=== PATIENT | female | born 1990 | race Caucasian/White ===

== ENCOUNTER 2018-07-17 07:14 | Inpatient (IN) | payer OTHER | END 2018-07-20 12:10 | disposition home or self-care (01) | LOC: ER 07:14 → CENTRAL 07-18 09:31 → TELE 14:40 → TELE-CENTR 14:55 | PROC: 0DTJ4ZZ Resection of Appendix, Percutaneous Endoscopic Approach (ICD-10-PCS; principal; 2018-07-18 10:22) | DX: K35.80 Unspecified acute appendicitis (principal); N39.0 Urinary tract infection, site not specified; E66.9 Obesity, unspecified; Z68.31 Body mass index [BMI] 31.0-31.9, adult ==

== ENCOUNTER 2018-07-25 17:06 | Emergency (ER) | payer OTHER ==
[~2018-07-25] VITALS: Ht 165.1 cm; Wt 82.1 kg
[~2018-07-25 17:06] MED LIST: OME20T PO; ONDA-101 PO
[2018-07-25 17:11] VITALS: BP 130/91
[2018-07-25] MEDS ORDERED: methylPREDNISolone SOD SUCC 125 MG/2 ML VL IM ONE (18:45)
[2018-07-25] MEDS ORDERED: diphenhdrAMINE HCL 50 MG/1 ML VL IM ONE (18:45)
[2018-07-25] MEDS ORDERED: EPINEPHrine HCL 1 MG/1 ML AMP SC ONE (18:45)
[2018-07-25 20:00] LABS: Basophils # (auto) 0 uL; Eosinophils # (auto) 0.2 uL; Hemoglobin 11.2 g/dL (12.2-16.2); Lymphocytes # (auto) 1.7 uL; Mean Corpuscular Hemoglobin 22.7 pg (28.0-32.0)
[2018-07-25 20:03] LABS: Basophils % (auto) 0.4 % (0.0-2.0); Eosinophils % (auto) 3.2 % (0.0-7.0); Hematocrit 34.9 % (36.0-46.0); Lymphocytes % (auto) 22.3 % (10.0-50.0); Mean Corpuscular Volume 70.8 fL (80.0-100.0); Monocytes # (auto) 0.7 uL; Monocytes % (auto) 8.7 % (0.0-12.0); Neutrophils % (auto) 65.4 % (37.0-80.0); Platelet Count (auto) 321 10^3/uL (140-450); Red Blood Cells 4.94 10^6/uL (4.0-5.20); Red Cell Distribution Width 17.3 % (11.8-14.3); White Blood Cell 7.6 10^3/uL (4.4-10.8)
[2018-07-25 20:10] LABS: Albumin 3.5 g/dL (3.4-5.0); BUN/Creatinine Ratio 16.7; Calcium 8.6 mg/dL (8.5-10.1); Potassium 3.5 mmol/L (3.5-5.1)
[2018-07-25 20:12] LABS: Bilirubin, Total 0.1 mg/dL (0.2-1.0); Total Protein 7.6 g/dL (6.4-8.2)
== END 2018-07-25 21:26 | disposition home or self-care (01) ==
LOC: ER 17:06
DX: L23.9 Allergic contact dermatitis, unspecified cause (principal); R55 Syncope and collapse; R42 Dizziness and giddiness; F12.10 Cannabis abuse, uncomplicated; Z87.891 Personal history of nicotine dependence
CPT/HCPCS: 36415; 70450; 80053; 83605; 85025; 96372; 99284; J0171; J1200; J2930

== ENCOUNTER 2019-12-31 07:55 | Emergency (ER) | payer OTHER ==
[~2019-12-31] VITALS: Ht 165.1 cm; Wt 86.2 kg
[2019-12-31 08:02] VITALS: BP 146/92
== END 2019-12-31 08:58 | disposition home or self-care (01) ==
LOC: ER 07:55
DX: R07.81 Pleurodynia (principal); F12.10 Cannabis abuse, uncomplicated; Z91.041 Radiographic dye allergy status; Z87.891 Personal history of nicotine dependence
CPT/HCPCS: 71101

== ENCOUNTER 2020-12-23 10:51 | Emergency (ER) | payer OTHER ==
[~2020-12-23] VITALS: Ht 165.1 cm; Wt 89.8 kg
[2020-12-23 10:58] VITALS: BP 143/97
[2020-12-23] MEDS ORDERED: SUMAtriptan SUCCINATE 6 MG/0.5 ML VL SC ONE (13:15)
[2020-12-23] MEDS ORDERED: ONDANSETRON ODT 4 MG TAB PO ONE (13:15)
== END 2020-12-23 14:09 | disposition home or self-care (01) ==
LOC: ER 10:51
DX: G43.909 Migraine, unspecified, not intractable, without status migrainosus (principal); F12.10 Cannabis abuse, uncomplicated; Z87.891 Personal history of nicotine dependence
CPT/HCPCS: 70450; 96372; 99284; J3030; Q0162

== ENCOUNTER 2024-08-30 12:22 | Inpatient (IN) | payer MEDICAID, OTHER ==
[~2024-08-30] VITALS: Ht 165.1 cm; Wt 91.0 kg
[2024-08-30 13:36] LABS: Urine Bacteria None Seen /hpf (None Seen)
[2024-08-30 13:50] LABS: Urine Blood 2+ /uL (Negative); Urine Budding Yeast OCCASIONAL /hpf (None Seen); Urine Clarity Turbid (Clear); Urine Color Yellow (Yellow); Urine Mucus FEW (None Seen); Urine Protein, UAD TRACE (Negative); Urine Specific Gravity 1.028 (1.001-1.035); Urine Squamous Epithelial Cell FEW /hpf (<5); Urine Urobilinogen Normal (Negative); Urine WBC 9 /HPF (0-5); Urine pH 5.5 (5.0-9.0)
--- NOTE | 2024-08-30 14:51 | ED.PDOC ---
GI ASSESSMENT HPI Comments 33 year old female presents to the ED with chief complaint of abdominal pain. Patient reports that she has been experiencing sharp LLQ abdominal pain since this morning at 10am with associated nausea and vomiting. Patient relays that she had a tubal ligation performed on 08/20/24 and her LMP was on 08/08/24. Patient states she just finished her prescription of Doxycycline for her recent surgery. Patient denies any diarrhea, melena, hematemesis, fever, chills, dysuria, or hematuria. Chief Complaint: Abdominal Pain Time Seen by MD: 14:51 Primary Care Provider: BILLY Reviewed Notes: Nurses Notes, Medications, Allergies Allergies: Coded Allergies: Iodine (Verified Allergy, Unknown, 12/31/19) Home Meds Reported Medications Famotidine (Famotidine) 40 Mg Tab, 1 TAB PO DAILY 08/30/24 Lamotrigine (Lamotrigine) 25 Mg Tab, 1 TAB PO DAILY 08/30/24 Aripiprazole (Aripiprazole) 2 Mg Tab, 2 TAB PO HS 08/30/24 Omeprazole (Omeprazole) 20 Mg Cap, 20 MG PO DAILY, CAP 07/17/18 Discontinued Reported Medications Ondansetron (Zofran Odt) 4 Mg Tab, 4 MG PO Q8HPRN PRN for nausea and vomiting, TAB 07/17/18 Information Source: Patient Mode of Arrival: Ambulatory Timing: Days Duration: Since onset Prehospital treatment: None Quality: Sharp Vomitus: Watery Stool: Normal Severity: Moderate Recent: None Recent Hx of: Abdominal Surgery Pain Location: LLQ Modifying Factors: Nothing Associated sign and symptoms: Nausea, Vomiting, Abdominal Pain Past Medical History PAST MEDICAL HISTORY: Denies Surgical History: Appendectomy, Tubal Ligation [employer] 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 Family History Family History: Reviewed,noncontributory to illness Social History Smoker: Quit Less Than 1 Year Alcohol: Denies ETOH Use Drugs: Marijuana Lives In: Home Constitutional: denies: chills, diaphoresis, fatigue, fever, malaise, sweats, weakness, others EENTM: denies: blurred vision, double vision, ear bleeding, ear discharge, ear drainage, ear pain, ear ringing, eye pain, eye redness, hearing loss, mouth shanae n, mouth swelling, nasal discharge, nose bleeding, nose congestion, nose pain, photophobia, tearing, throat pain, throat swelling, voice changes, others Respiratory: denies: cough, hemoptysis, orthopnea, SOB at rest, shortness of breath, SOB with excertion, stridor, wheezing, others Cardiovascular: denies: chest pain, dizzy spells, diaphoresis, Dyspnea on exertion, edema, irregular heart beat, left arm pain, lightheadedness, palpitations, PND, syncope, others Gastrointestinal: reports: abdominal pain, nausea, vomiting; denies: abdomen distended, blood streaked bowels, constipated, diarrhea, dysphagia, difficulty swallowing, hematemesis, melena, poor appetite, poor fluid intake, rectal bleeding, rectal pain, others Genitourinary: denies: abnormal vagina bleeding, burning, dyspareunia, dysuria, flank pain, frequency, hematuria, incontinence, pain, , vagina discharge, urgency, others Neurological: denies: dizziness, fainting, headache, left sided numbness, left sided weakness, numbness, paresthesia, pre-existing deficit, right sided numbness, right sided weakness, seizure, speech problems, tingling, tremors, weakness, others Musculoskeletal: denies: back pain, gout, joint pain, joint swelling, muscle pain, muscle stiffness, neck pain, others Integumetry: denies: bruises, change in color, change in hair/nails, dryness, laceration, lesions, lumps, rash, wounds, others Allergic/Immunocompromised: denies: Difficulty Healing, Frequent Infections, Hives, Itching, others Hematologic/Lymphatic: denies: anemia, blood clots, easy bleeding, easy bruising, swollen glands, others Endocrine: denies: excessive hunger, excessive sweating, excessive thirst, excessive urination, flushing, intolerance to cold, intolerance to heat, unexplained weight gain, unexplained weight loss, others Psychiatric: denies: anxiety, bipolar disorder, depression, hopeless, panic disorder, schizophrenia, sleepless, suicidal, others All Other Systems: Reviewed and Negative Physical Exam General Appearance: No Apparent Distress HEENT: Other (Pupils and face symmetric. Moist mucous membranes.) Neck: Full Range of Motion, Normal Inspection Respiratory: Lungs Clear, No Accessory Muscle Use, No Respiratory Distress, Normal Breath Sounds Cardiovascular: No Edema, No JVD, Regular Rate/Rhythm Breast Exam: Deferred Gastrointestinal: LLQ, Soft, Tenderness Genitalia: Deferred Pelvic: Deferred Rectal: Deferred Extremities: Normal inspection, Normal range of motion, Non-tender, No pedal edema Neurologic: Alert (Oriented x4), Normal Affect, Normal Mood, Other (Ambulatory) Cerebellar Function: NOT DONE Reflexes: NOT DONE Skin: Dry, Normal Color, Warm Lymphatic: NOT DONE Was a procedure done? Was a procedure done?: No GI differential Dx Differential Diagnosis: Constipation, Diverticular disease, Ectopic , Gastroenteritis, Inflammatory BD, Ischemic Bowel, UTI, Urolithiasis, Dehydration, Electrolyte Imbalance, Food Poisoning, , Bacterial, Viral, Kidney Stone Other Differential Diagnosis Colitis, sepsis, among others X-Ray, Labs, Meds, VS Vital Signs Date Time Temp Pulse Resp B/P (MAP) Pulse Ox O2 Delivery O2 Flow Rate FiO2 08/30/24 16:20 71 12 116/63 08/30/24 15:50 87 15 110/76 08/30/24 15:39 79 18 98 Room Air 08/30/24 15:25 61 18 121/71 (88) 98 08/30/24 12:24 97.4 46 18 130/83 (99) 98 97.4 Lab Test 08/30/24 15:00 08/30/24 12:30 Range/Units White Blood Count 21.3 H 4.4-10.8 10^3/uL Red Blood Count 5.51 H 4.0-5.20 10^6/uL Hemoglobin 15.2 12.2-16.2 g/dL Hematocrit 46.3 H 36.0-46.0 % Mean Corpuscular Volume 84.1 80.0-100.0 fL Mean Corpuscular Hemoglobin 27.5 L 28.0-32.0 pg Mean Corpuscular Hemoglobin Concent 32.8 32.0-36.0 g/dL Red Cell Distribution Width 16.2 H 11.8-14.3 % Platelet Count 312 140-450 10^3/uL Mean Platelet Volume 7.4 6.9-10.8 fL Neutrophils (%) (Auto) 78.3 37.0-80.0 % Lymphocytes (%) (Auto) 12.6 10.0-50.0 % Monocytes (%) (Auto) 8.9 0.0-12.0 % Eosinophils (%) (Auto) 0.1 0.0-7.0 % Basophils (%) (Auto) 0.1 0.0-2.0 % Neutrophils # (Auto) 16.7 H 1.6-8.6 10 ^3/uL Lymphocytes # (Auto) 2.7 0.4-5.4 10 ^3/uL Monocytes # (Auto) 1.9 H 0-1.3 10 ^3/uL Eosinophils # (Auto) 0 0-0.8 10 ^3/uL Basophils # (Auto) 0 0-0.2 10 ^3/uL Nucleated Red Blood Cells 0.1 % Sodium Level 142 136-145 mmol/L Potassium Level 3.7 3.5-5.1 mmol/L Chloride Level 105 98-107 mmol/L Carbon Dioxide Level 26 20-31 mmol/L Anion Gap 11 5-15 Blood Urea Nitrogen 13 9-23 mg/dL Creatinine 0.86 0.550-1.02 mg/dL Glomerular Filtration Rate Calc 93 >90 mL/min BUN/Creatinine Ratio 15.1 10.0-20.0 Serum Glucose 91 74-106 mg/dL Lactic Acid Level 2.5 *H 0.4-2.0 mmol/L Calcium Level 10.4 8.7-10.4 mg/dL Urine Color Yellow Yellow Urine Clarity Turbid H Clear Urine pH 5.5 5.0-9.0 Urine Specific [place] 1.028 1.001-1.035 Urine Protein Trace H Negative Urine Ketones Negative Negative Urine Blood 2+ H Negative /uL Urine Nitrite Negative Negative Urine Bilirubin Negative Negative Urine Urobilinogen Normal Negative mg/dL Urine Leukocyte Esterase 2+ Negative /uL Urine RBC 75 0 - 4 /hpf Urine Microscopic WBC 9 H 0-5 /HPF Urine Squamous Epithelial Cells Few <5 /hpf Urine Bacteria None seen None Seen /hpf Urine Mucus Few None Seen Urine Yeast (Budding) Occasional None Seen /hpf Urine Glucose Normal Normal mg/dL Urine Test Negative Negative Current Medications Medications (Trade) Dose Ordered Sig/Mehnaz Route Start Time Stop Time Status Last Admin Sodium Chloride 1,700 ml @ 1,700 mls/hr ONCE ONCE IV 08/30/24 14:30 08/30/24 15:29 DC 08/30/24 15:50 Ondansetron HCl (Zofran) 4 mg ONCE ONCE IV 08/30/24 14:30 08/30/24 14:31 DC 08/30/24 15:50 Morphine Sulfate 4 mg ONCE ONCE IV 08/30/24 14:30 08/30/24 14:31 DC 08/30/24 15:50 Ceftriaxone Sodium 50 ml @ 100 mls/hr ONCE ONCE IV 08/30/24 14:30 08/30/24 14:59 DC 08/30/24 15:50 PROCEDURE(s): ABPL - CT AB PEL WO CON-NO ORAL OR IV REASON: llq pain n/v/d ORDER NUMBER(s): [id number], ACCESSION NUMBER(s): [id number] Exam: CT CT AB PEL WO CON-NO ORAL OR IV History: llq pain n/v/d Comparison Study: None TECHNIQUE: CT CT AB PEL WO CON-NO ORAL OR IV. Multidetector CT of the abdomen was performed from lung bases to pubic symphysis. Imaging was performed without IV contrast. Axial, coronal and sagittal multiplanar reformats were obtained from the axial data set by the technologist. Radiation Dose Information: CT Dose: CTDI volume is 15.96 mGy. Dose-length product is 784.6 mGy*cm FINDINGS: Evaluation of solid organs is limited due to lack of intravenous contrast use. Findings: Lung Bases: No acute or significant lung base finding. Normal heart size. No pleural or pericardial effusion. Liver: The liver is normal in size. No focal lesions. Gallbladder and Biliary Tree: Unremarkable Spleen: Unremarkable Pancreas: The pancreas is grossly normal in appearance. Adrenal Glands: Unremarkable Kidneys: Kidneys are grossly normal without calculi or hydronephrosis. Mild left pyelocaliectasis but no calcifications are noted in the kidney ureter or bladder. Bladder: Grossly unremarkable for degree of distention. Bowel: The stomach is grossly normal in appearance. Small bowel and colon are normal in caliber and distribution. The appendix is not visualized; however, no secondary findings of acute appendicitis identified. Ascites: Absent Lymphadenopathy: No mesenteric, retroperitoneal or periportal lymphadenopathy. Abdominal Wall and Mesentery: Unremarkable. Vasculature: The visualized abdominal aorta is normal in size and caliber. Evaluation of abdominal and pelvic vessels is limited due to lack of intravenous contrast. Pelvic Organs: Small amount of fluid in the right and left adnexa with tissue density of 11 Hounsfield units. Musculoskeletal: No aggressive focal bony lesions, acute fractures or dislocation. Soft tissues: Unremarkable IMPRESSION: 1. No nephrolithiasis or hydronephrosis no calcifications of the left ureter. No calcifications in the bladder. 2. No findings of diverticulosis or diverticulitis. 3. . Radiation optimization: All CT scans at this facility use at least one of these dose optimization techniques: automated exposure control mA and/or kV adjustment per patient size (includes targeted exams where dose is matched to clinical indication) or iterative reconstruction. HS:Y X-Ray, Labs, Meds, VS Comment 33-year-old female status post tubal ligation complaining of left lower quadrant pain, nausea, vomiting and diarrhea Vitals unremarkable Exam remarkable for left lower quadrant tenderness to palpation Rhythm strip independently interpreted by me: Sinus rhythm, rate 61, no ectopy. CT abdomen and pelvis unremarkable CBC remarkable for WBC 21.3, metabolic panel unremarkable, lactate 2.5, 2.1 on repeat, UA abnormal consistent with UTI Patient treated with the following in the ED: Rocephin 1 g IV, morphine 4 mg IV, Zofran 4 mg IV, 30 cc/kilogram IV normal saline bolus, vancomycin 1 g IV On re-evaluation, patient states pain has improved. Vitals were stable. Plan is to admit the patient for IV antibiotics. Time of 1ST Reevaluation: 15:50 Reevaluation 1ST: Unchanged Patient Education/Counseling: Diagnosis, Treatment Family Education/Counseling: No Family Present Sepsis Sepsis Reasesment Focused Exam Sepsis focused exam: focus exam completed, time: (1844) Orders: Laboratory Tests 08/30/24 15:00: Lactic Acid Level 2.5 Sepsis Date: Aug 30, 2024 Time recognized/suspected: 15:30 Recent Procedure: Yes On Antibiotic Therapy: No Respiratory Rate >20: No Heart Rate >90: No Temp<36 C (96.8 F) or >38.3 C: No SBP <90 or MAP <65 mmHG: No New Acute Mental Status Change: No Is the patient on CPAP, BIPAP,: No IV fluid given: Yes Departure 1 Departure Time of Disposition: 17:00 Impression: Primary Impression: Urinary tract infection Qualified Codes: N39.0 - Urinary tract infection, site not specified Additional Impression: Sepsis Qualified Codes: A41.9 - Sepsis, unspecified organism Disposition: ADMITTED INPATIENT Admit to: Tele Condition: Guarded Critical Care Note Critical Care Time?: Yes (35 min-critical care time only) Critical care comment: Critical care time including multiple bedside re-evaluations, review of lab and imaging studies, and discussion of the case with the admitting provider. Patient is high risk for hemodynamic decompensation. Stability Stability form required: No Heart Score Heart Score: Heart Score Response (Comments) Value History N/A 0 EKG N/A 0 Age N/A 0 Risk Factors N/A 0 Troponin N/A 0 Total 0 I personally scribed for LIZA RODRIGUEZ MD ([email or web address]) on 08/30/24 at 14:51. Electronically submitted by Avery Connelly ([email or web address]). LIZA RODRIGUEZ MD Aug 30, 2024 14:51
[2024-08-30 15:25] LABS: Basophils # (auto) 0 10 ^3/uL (0-0.2); Basophils % (auto) 0.1 % (0.0-2.0); Eosinophils # (auto) 0 10 ^3/uL (0-0.8); Eosinophils % (auto) 0.1 % (0.0-7.0); Hematocrit 46.3 % (36.0-46.0); Hemoglobin 15.2 g/dL (12.2-16.2); Lymphocytes # (auto) 2.7 10 ^3/uL (0.4-5.4); Lymphocytes % (auto) 12.6 % (10.0-50.0); Mean Corpuscular Hemoglobin 27.5 pg (28.0-32.0); Mean Corpuscular Hgb Conc. 32.8 g/dL (32.0-36.0); Mean Corpuscular Volume 84.1 fL (80.0-100.0); Monocytes # (auto) 1.9 10 ^3/uL (0-1.3); Monocytes % (auto) 8.9 % (0.0-12.0); Neutrophils # (auto) 16.7 10 ^3/uL (1.6-8.6); Neutrophils % (auto) 78.3 % (37.0-80.0); Nucleated Red Blood Cells % 0.1 %; Platelet Count (auto) 312 10^3/uL (140-450); Red Blood Cells 5.51 10^6/uL (4.0-5.20); Red Cell Distribution Width 16.2 % (11.8-14.3); White Blood Cell 21.3 10^3/uL (4.4-10.8)
[2024-08-30 15:45] LABS: Anion Gap 11 (5-15); Carbon Dioxide 26 mmol/L (20-31); Chloride 105 mmol/L (98-107); Potassium 3.7 mmol/L (3.5-5.1); Sodium 142 mmol/L (136-145)
[2024-08-30] MEDS: MORPHINE SULFATE 4 MG/ML SYR/VIAL IV ONE (15:50)
[2024-08-30] MEDS: SODIUM CHLORIDE 0.9% 1,700 ML IV ONE (15:50)
[2024-08-30] MEDS: cefTRIAXone 1GM/50ML D5W 50 ML IV ONE (15:50)
[2024-08-30] MEDS: ONDANSETRON HCL 4 MG/2 ML VIAL IV ONE (15:50)
[2024-08-30 15:51] LABS: BUN/Creatinine Ratio 15.1 (10.0-20.0); Blood Urea Nitrogen 13 mg/dL (9-23); Glucose 91 mg/dL (74-106)
--- NOTE | 2024-08-30 15:51 | DVH ---
Exam: CT CT AB PEL WO CON-NO ORAL OR IV History: llq pain n/v/d Comparison Study: None TECHNIQUE: CT CT AB PEL WO CON-NO ORAL OR IV. Multidetector CT of the abdomen was performed from l kevyn bases to pubic symphysis. Imaging was performed without IV contrast. Axial, coronal and sagittal multiplanar reformats were obtained from the axial data set by the technologist. Radiation Dose Information: CT Dose: CTDI volume is 15.96 mGy. Dose-length product is 784.6 mGy*cm FINDINGS: Evaluation of solid organs is limited due to lack of intravenous contrast use. Findings: Lung Bases: No acute or significant lung base finding. Normal heart size. No pleural or pericardial effusion. Liver: The liver is normal in size. No focal lesions. Gallbladder and Biliary Tree: Unremarkable Spleen: Unremarkable Pancreas: The pancreas is grossly normal in appearance. Adrenal Glands: Unremarkable Kidneys: Kidneys are grossly normal without calculi or hydronephrosis. Mild left pyelocaliectasis but no calcifications are noted in the kidney ureter or bladder. Bladder: Grossly unremarkable for degree of distention. Bowel: The stomach is grossly normal in appearance. Small bowel and colon are normal in caliber and d istribution. The appendix is not visualized; however, no secondary findings of acute appendicitis id entified. Ascites: Absent Lymphadenopathy: No mesenteric, retroperitoneal or periportal lymphadenopathy. Abdominal Wall and Mesentery: Unremarkable. Vasculature: The visualized abdominal aorta is normal in size and caliber. Evaluation of abdominal a nd pelvic vessels is limited due to lack of intravenous contrast. Pelvic Organs: Small amount of fluid in the right and left adnexa with tissue density of 11 Hounsfiel d units. Musculoskeletal: No aggressive focal bony lesions, acute fractures or dislocation. Soft tissues: Unremarkable IMPRESSION: 1. No nephrolithiasis or hydronephrosis no calcifications of the left ureter. No calcifications in th e bladder. 2. No findings of diverticulosis or diverticulitis. 3. . Radiation optimization: All CT scans at this facility use at least one of these dose optimization jack hniques: automated exposure control mA and/or kV adjustment per patient size (includes targeted exam s where dose is matched to clinical indication) or iterative reconstruction. HS:Y
[2024-08-30 16:04] LABS: Calcium 10.4 mg/dL (8.7-10.4)
[2024-08-30 16:11] LABS: Lactic Acid w/Reflex 2.5 mmol/L (0.4-2.0)
[2024-08-30] MEDS ORDERED: LAMO25TA27 PO (17:13)
[2024-08-30] MEDS ORDERED: ARIP2TAB48 PO (17:13)
[2024-08-30] MEDS ORDERED: HYDROcodone-ACET 5/325MG TAB PO PRN (17:15)
[2024-08-30] MEDS ORDERED: DOCUSATE SOD 100 MG CAP PO PRN (17:15)
[2024-08-30] MEDS ORDERED: ACETAMINOPHEN 325 MG TAB PO PRN (17:15)
[2024-08-30] MEDS ORDERED: ONDANSETRON HCL 4 MG/2 ML VIAL IV PRN (17:15)
--- NOTE | 2024-08-30 17:51 | DVHHP2 ---
History of Present Illness Reason for Visit: abdominal pain History of Present Illness Hang Hanley is a 33-year old female with past medical history of bipolar II and tubal ligation 08/20/2024, who came to the hospital for abdominal pain. Patient states she woke up with morning around 1000 with severe LLQ pain with associated nausea. She had finished her antibiotics she was prescribed post her procedure yesterday. Patient had the tubal ligation completed at [facility] by Dr. Burnham. Abdominal incision are healing well, no drainage noted. Patient complains of pain to LLQ on examination. Psych: Bipolar Past Surgical History: Appendectomy, Tubal Ligation Smoke: No ALCOHOL: rare Drugs: None Lives: with Family Domestic Violence: Neg Review of Systems Constitutional: No: Fever, Chills, Sweats, Weakness, Malaise, Other Eyes: No: Pain, Vision change, Conjunctivae inflammation, Eyelid inflammation, Other, Redness ENT: No: Ear pain, Ear discharge, Nose pain, Nose discharge, Nose congestion, Mouth pain, Mouth swelling, Throat pain, Throat swelling, Other Respiratory: No: Cough, Dry, Shortness of breath, SOB with excertion, Wheezing, Hemoptysis, Pleuritic Pain, Sputum, Wheezing, Other Cardiovascular: No: Chest Pain, Palpitations, Orthopnea, Paroxysmal Noc. Dyspnea, Edema, Lt Headedness, Other Gastrointestinal: Nausea, Vomiting, Abdominal Pain (LLQ); No: Diarrhea, Consti pation, Melena, Hematochezia, Other Genitourinary: No Dysuria, No Frequency, No Incontinence, No Hematuria, No Retention, No Other Musculoskeletal: No: other, neck pain, shoulder pain, arm pain, back pain, hand pain, leg pain, foot pain Skin: No: Rash, Lesions, Jaundice, Bruising, Other Allergies: Coded Allergies: Iodine (Verified Allergy, Unknown, 12/31/19) Medications Current Medications Medications Dose Ordered Sig/Mehnaz Route Start Time Stop Time Status Last Admin Dose Admin Acetaminophen/ Hydrocodone Bitart 1 tab Q4HP PRN PO 08/30/24 17:15 UNV Ondansetron HCl 4 mg Q4HP PRN IV 08/30/24 17:15 UNV Docusate Sodium 100 mg BIDPRN PRN PO 08/30/24 17:15 UNV Acetaminophen 650 mg Q6HP PRN PO 08/30/24 17:15 UNV Morphine Sulfate 2 mg Q4HPRN PRN IV 08/30/24 17:15 UNV Patient Own Medication 2 tab HS PO 08/30/24 22:00 UNV Patient Own Medication 1 tab DAILY PO 08/31/24 10:00 UNV Exam Vital Signs Vital Signs Date Time Temp Pulse Resp B/P (MAP) Pulse Ox O2 Delivery O2 Flow Rate FiO2 08/30/24 15:50 87 15 110/76 08/30/24 15:39 98 Room Air 08/30/24 12:24 97.4 97.4 General Appearance: Alert, Oriented X3, Cooperative, moderate distress HEENT: Atraumatic, PERRLA Respiratory: Clear to auscultation, Normal air movement Cardiovascular: Regular rate, Normal S1, Normal S2, No murmurs Abdominal: Normal bowel sounds, Soft, Other (LLQ pain and nausea) Extremities: No clubbing, No cyanosis, No edema, Normal pulses Skin: No rashes, No breakdown, No significant lesion Neuro: Normal gait, Normal speech, Strength at 5/5 X4 ext, Normal tone Psych/Mental Status: Mental status NL, Mood NL Labs/Xrays Labs Test 08/30/24 15:00 08/30/24 12:30 Range/Units White Blood Count 21.3 H 4.4-10.8 10^3/uL Red Blood Count 5.51 H 4.0-5.20 10^6/uL Hemoglobin 15.2 12.2-16.2 g/dL Hematocrit 46.3 H 36.0-46.0 % Mean Corpuscular Volume 84.1 80.0-100.0 fL Mean Corpuscular Hemoglobin 27.5 L 28.0-32.0 pg Mean Corpuscular Hemoglobin Concent 32.8 32.0-36.0 g/dL Red Cell Distribution Width 16.2 H 11.8-14.3 % Platelet Count 312 140-450 10^3/uL Mean Platelet Volume 7.4 6.9-10.8 fL Neutrophils (%) (Auto) 78.3 37.0-80.0 % Lymphocytes (%) (Auto) 12.6 10.0-50.0 % Monocytes (%) (Auto) 8.9 0.0-12.0 % Eosinophils (%) (Auto) 0.1 0.0-7.0 % Basophils (%) (Auto) 0.1 0.0-2.0 % Neutrophils # (Auto) 16.7 H 1.6-8.6 10 ^3/uL Lymphocytes # (Auto) 2.7 0.4-5.4 10 ^3/uL Monocytes # (Auto) 1.9 H 0-1.3 10 ^3/uL Eosinophils # (Auto) 0 0-0.8 10 ^3/uL Basophils # (Auto) 0 0-0.2 10 ^3/uL Nucleated Red Blood Cells 0.1 % Sodium Level 142 136-145 mmol/L Potassium Level 3.7 3.5-5.1 mmol/L Chloride Level 105 98-107 mmol/L Carbon Dioxide Level 26 20-31 mmol/L Anion Gap 11 5-15 Blood Urea Nitrogen 13 9-23 mg/dL Creatinine 0.86 0.550-1.02 mg/dL Glomerular Filtration Rate Calc 93 >90 mL/min BUN/Creatinine Ratio 15.1 10.0-20.0 Serum Glucose 91 74-106 mg/dL Lactic Acid Level 2.5 *H 0.4-2.0 mmol/L Calcium Level 10.4 8.7-10.4 mg/dL Urine Color Yellow Yellow Urine Clarity Turbid H Clear Urine pH 5.5 5.0-9.0 Urine Specific [place] 1.028 1.001-1.035 Urine Protein Trace H Negative Urine Ketones Negative Negative Urine Blood 2+ H Negative /uL Urine Nitrite Negative Negative Urine Bilirubin Negative Negative Urine Urobilinogen Normal Negative mg/dL Urine Leukocyte Esterase 2+ Negative /uL Urine RBC 75 0 - 4 /hpf Urine Microscopic WBC 9 H 0-5 /HPF Urine Squamous Epithelial Cells Few <5 /hpf Urine Bacteria None seen None Seen /hpf Urine Mucus Few None Seen Urine Yeast (Budding) Occasional None Seen /hpf Urine Glucose Normal Normal mg/dL Urine Test Negative Negative Exam: CT CT AB PEL WO CON-NO ORAL OR IV FINDINGS: Evaluation of solid organs is limited due to lack of intravenous contrast use. Findings: Lung Bases: No acute or significant lung base finding. Normal heart size. No pleural or pericardial effusion. Liver: The liver is normal in size. No focal lesions. Gallbladder and Biliary Tree: Unremarkable Spleen: Unremarkable Pancreas: The pancreas is grossly normal in appearance. Adrenal Glands: Unremarkable Kidneys: Kidneys are grossly normal without calculi or hydronephrosis. Mild left pyelocaliectasis but no calcifications are noted in the kidney ureter or bladder. Bladder: Grossly unremarkable for degree of distention. Bowel: The stomach is grossly normal in appearance. Small bowel and colon are normal in caliber and distribution. The appendix is not visualized; however, no secondary findings of acute appendicitis identified. Ascites: Absent Lymphadenopathy: No mesenteric, retroperitoneal or periportal lymphadenopathy. Abdominal Wall and Mesentery: Unremarkable. Vasculature: The visualized abdominal aorta is normal in size and caliber. Evaluation of abdominal and pelvic vessels is limited due to lack of intravenous contrast. Pelvic Organs: Small amount of fluid in the right and left adnexa with tissue density of 11 Hounsfield units. Musculoskeletal: No aggressive focal bony lesions, acute fractures or dislocation. Soft tissues: Unremarkable IMPRESSION: 1. No nephrolithiasis or hydronephrosis no calcifications of the left ureter. No calcifications in the bladder. 2. No findings of diverticulosis or diverticulitis. Assessment/Plan Assessment/Plan Assessment: Sepsis, Lactic acidosis, Leukocytosis, S/P tubal ligation 08/20/2024, Bipolar II, Plan: Admit to Med-Surg, IV antibiotics, IV hydration, Lactic acid level, Blood cultures, Pelvic ultrasound, Home medications reconciled, Plan discussed with: Patient My Orders Orders - YISEL MATHEWS Procedure Category Date Status Time Admit ADMIT 08/30/24 Transmitted 17:10 Code Status CODE 08/30/24 Transmitted 17:10 Hydrocodone-Acet PHA 08/30/24 Logged 5/325mg Tab ([place] 17:15 Ondansetron Hcl PHA 08/30/24 Logged (Zofran) 17:15 Docusate Sodium PHA 08/30/24 Logged Capsule ([place] 17:15 Complete Blood Count LAB 08/31/24 Verified 04:00 Comprehensive LAB 08/31/24 Verified Metabolic Panel 04:00 Condition: Serious CARLINE 08/30/24 In Process 17:10 Acetaminophen Tablet PHA 08/30/24 Logged (Tylenol Tablet) 17:15 Morphine Sulfate PHA 08/30/24 Logged Injection 17:15 Pelvic US 08/30/24 Logged 17:10 (Nf) Aripiprazole PHA 08/30/24 Logged 22:00 (Nf) Lamotrigine PHA 08/31/24 Logged 10:00 Date of Service: Aug 30, 2024 Billing Provider: YISEL MATHEWS Common Visit Codes: [id number] INP/OBS CARE (HIGH) YISEL MATHEWS Aug 30, 2024 17:51
[2024-08-30] MEDS ORDERED: MORPHINE SULFATE 4 MG/ML SYR/VIAL IV PRN (18:00)
[2024-08-30] MEDS ORDERED: VANCOMYCIN PER PHARMACY 0 MG IV SCH (18:15)
[2024-08-30 18:25] VITALS: BP 111/69; PULSE 60; RESP 18; O2SAT 98
[2024-08-30 18:32] VITALS: PULSE 68; RESP 16; O2SAT 98
[2024-08-30] MEDS: VANCOMYCIN 1.5GM/300ML 300 ML IV ONE (18:38)
--- NOTE | 2024-08-30 19:15 | DVH ---
PELVIC ULTRASOUND WITH TRANSABDOMINAL AND TRANSVAGINAL IMAGING CLINICAL HISTORY: Sepsis, S/P tubal ligation 08/20/2024, abdominal pain COMPARISON: CT obtained same day. TECHNIQUE: Transabdominal and transvaginal grayscale, color-flow Doppler, and duplex Doppler was per formed. FINDINGS: The uterus measures 8.8 x 4.5 x 3.5 cm. No discrete myometrial lesions identified. Endometrial thickn ess 0.9 cm. Small subcentimeter cystic structure in the cervix may represent a nabothian cyst. The right ovary measures 2.9 x 2.4 x 2.4 cm. The left ovary measures 2.5 x 1.7 x 2.1 cm. This includes an approximately 1.2 cm cyst. Both ovaries demonstrate dopplerable blood flow on spectral analysis. Small amount of free fluid identified in the cul-de-sac. IMPRESSION: No sonographic evidence of ovarian torsion at this time. Small left ovarian cyst. Small amount of free fluid in the cul-de-sac is nonspecific but may be physiologic or postsurgical.
[2024-08-30] MEDS ORDERED: FAMO40TA7 PO (20:05)
[2024-08-30 20:30] VITALS: BP 126/72; PULSE 57; RESP 18; TEMP 98.2; O2SAT 94
[2024-08-31 01:00] VITALS: BP 106/64; PULSE 76; RESP 16; TEMP 98.3; O2SAT 95
[2024-08-31 05:00] VITALS: BP 103/61; PULSE 97; RESP 16; TEMP 98; O2SAT 97
[2024-08-31 06:10] LABS: Basophils # (auto) 0 10 ^3/uL (0-0.2); Basophils % (auto) 0.1 % (0.0-2.0); Eosinophils # (auto) 0.1 10 ^3/uL (0-0.8); Eosinophils % (auto) 0.8 % (0.0-7.0); Hematocrit 42.2 % (36.0-46.0); Hemoglobin 13.9 g/dL (12.2-16.2); Lymphocytes # (auto) 3.4 10 ^3/uL (0.4-5.4); Lymphocytes % (auto) 29.9 % (10.0-50.0); Mean Corpuscular Hemoglobin 27.7 pg (28.0-32.0); Mean Corpuscular Hgb Conc. 32.9 g/dL (32.0-36.0); Mean Corpuscular Volume 84.3 fL (80.0-100.0); Monocytes % (auto) 8.7 % (0.0-12.0); Neutrophils # (auto) 6.8 10 ^3/uL (1.6-8.6); Neutrophils % (auto) 60.5 % (37.0-80.0); Nucleated Red Blood Cells % 0.1 %; Platelet Count (auto) 304 10^3/uL (140-450); Red Blood Cells 5.01 10^6/uL (4.0-5.20); Red Cell Distribution Width 16.6 % (11.8-14.3); White Blood Cell 11.3 10^3/uL (4.4-10.8)
[2024-08-31 06:15] LABS: Alanine Aminotransferase 23 U/L (7-40); Albumin 4.2 g/dL (3.2-4.8); Alkaline Phosphatase 59 U/L (46-116); Anion Gap 10 (5-15); BUN/Creatinine Ratio 17.4 (10.0-20.0); Bilirubin, Total 0.8 mg/dL (0.2-1.0); Blood Urea Nitrogen 16 mg/dL (9-23); Calcium 9.4 mg/dL (8.7-10.4); Carbon Dioxide 27 mmol/L (20-31); Chloride 104 mmol/L (98-107); Glucose 77 mg/dL (74-106); Sodium 141 mmol/L (136-145); Total Protein 6.5 g/dL (5.7-8.2)
[2024-08-31 06:44] LABS: Aspartate Aminotransferase 12 U/L (13-40)
[2024-08-31 08:00] VITALS: PULSE 72; PULSE 75; RESP 18; O2SAT 98
[2024-08-31 09:00] VITALS: BP 114/77; PULSE 72; RESP 16; TEMP 98.4; O2SAT 97
[2024-08-31] MEDS: lamoTRIgine 25 MG TAB PO SCH (10:06)
[2024-08-31] MEDS: cefTRIAXone 1GM/50ML D5W 50 ML IV SCH (10:07)
[2024-08-31 13:09] VITALS: BP 114/77; PULSE 74; RESP 16; TEMP 97.6; O2SAT 99
[2024-08-31 13:12] VITALS: BP 134/70; PULSE 92; RESP 96; TEMP 98.2; O2SAT 96
[2024-08-31] MEDS: VANCOMYCIN 1GM/200ML PM 200 ML IV SCH (15:57)
[2024-08-31] MEDS ORDERED: CEPH500C PO (18:00)
--- NOTE | 2024-08-31 18:05 | DVHDS2 ---
Discharge Summary Date of Admission Aug 30, 2024 at 17:10 Date of Discharge: Aug 31, 2024 Labs/Diagnostic Data: Laboratory Results Test 08/31/24 05:39 08/30/24 17:15 08/30/24 12:30 White Blood Count 11.3 10^3/uL (4.4-10.8) Red Blood Count 5.01 10^6/uL (4.0-5.20) Hemoglobin 13.9 g/dL (12.2-16.2) Hematocrit 42.2 % (36.0-46.0) Mean Corpuscular Volume 84.3 fL (80.0-100.0) Mean Corpuscular Hemoglobin 27.7 pg (28.0-32.0) Mean Corpuscular Hemoglobin Concent 32.9 g/dL (32.0-36.0) Red Cell Distribution Width 16.6 % (11.8-14.3) Platelet Count 304 10^3/uL (140-450) Mean Platelet Volume 7.5 fL (6.9-10.8) Neutrophils (%) (Auto) 60.5 % (37.0-80.0) Lymphocytes (%) (Auto) 29.9 % (10.0-50.0) Monocytes (%) (Auto) 8.7 % (0.0-12.0) Eosinophils (%) (Auto) 0.8 % (0.0-7.0) Basophils (%) (Auto) 0.1 % (0.0-2.0) Neutrophils # (Auto) 6.8 10 ^3/uL (1.6-8.6) Lymphocytes # (Auto) 3.4 10 ^3/uL (0.4-5.4) Monocytes # (Auto) 1.0 10 ^3/uL (0-1.3) Eosinophils # (Auto) 0.1 10 ^3/uL (0-0.8) Basophils # (Auto) 0 10 ^3/uL (0-0.2) Nucleated Red Blood Cells 0.1 % Sodium Level 141 mmol/L (136-145) Potassium Level 4.0 mmol/L (3.5-5.1) Chloride Level 104 mmol/L (98-107) Carbon Dioxide Level 27 mmol/L (20-31) Anion Gap 10 (5-15) Blood Urea Nitrogen 16 mg/dL (9-23) Creatinine 0.92 mg/dL (0.550-1.02) Glomerular Filtration Rate Calc 85 mL/min (>90) BUN/Creatinine Ratio 17.4 (10.0-20.0) Serum Glucose 77 mg/dL (74-106) Calcium Level 9.4 mg/dL (8.7-10.4) Total Bilirubin 0.8 mg/dL (0.2-1.0) Aspartate Amino Transferase (AST) 12 U/L (13-40) Alanine Aminotransferase (ALT) 23 U/L (7-40) Alkaline Phosphatase 59 U/L (46-116) Total Protein 6.5 g/dL (5.7-8.2) Albumin 4.2 g/dL (3.2-4.8) Random Vancomycin Level 9.9 ug/mL (5-10) Lactic Acid Level 2.1 mmol/L (0.4-2.0) Urine Color Yellow (Yellow) Urine Clarity Turbid (Clear) Urine pH 5.5 (5.0-9.0) Urine Specific [place] 1.028 (1.001-1.035) Urine Protein Trace (Negative) Urine Ketones Negative (Negative) Urine Blood 2+ /uL (Negative) Urine Nitrite Negative (Negative) Urine Bilirubin Negative (Negative) Urine Urobilinogen Normal mg/dL (Negative) Urine Leukocyte Esterase 2+ /uL (Negative) Urine RBC 75 /hpf (0 - 4) Urine Microscopic WBC 9 /HPF (0-5) Urine Squamous Epithelial Cells Few /hpf (<5) Urine Bacteria None seen /hpf (None Seen) Urine Mucus Few (None Seen) Urine Yeast (Budding) Occasional /hpf (None Urine Glucose Normal mg/dL (Normal) Urine Test Negative (Negative) Other Laboratory Tests 08/31/24 05:39 Brief Hx & Hospital Course: 73-year-old female with a known history of bipolar disorder initially presented to the hospital with a left-sided abdominal pain associated with the nausea and vomiting. Patient underwent CT abdomen and pelvis which shows no evidence of any acute pathology. Patient was given IV hydration. Sepsis has been ruled out by negative blood cultures. Patient was treated for mild UTI. Patient has leukocytosis trended down. Patient is being discharged under stable condition. Have repeat CBC and lactic acid level with a known less than one week. Please return to ER if there is any worsening fevers chills dysuria hematuria or any concern. Condition at Discharge: Stable Final Diagnosis/Problems List 1. Abdominal pain with the nausea and vomiting suspect gastroenteritis 2. Sepsis has been ruled out 3. Lactic acidosis secondary to dehydration 4. Mild UTI 5. Status post tubal ligation recently 6. Bipolar disorder Discharge Disposition: Home SNF Discharge Will this Physician continue t: No Discharge Instruct/Medications Diet: Regular Activity: No Restrictions, As Tolerated Follow Up/Referral: Follow up with the PCP in one week with a repeat lactic acid level. Medications: Resume home medications, Keflex as prescribed Discharge Statement: "Patient was advised to return to the ER or call 911 if any headaches, dizziness, shortness of breath, chest pain, abdominal pain, bleeding, fevers, or worsening of medical condition. Patient was counseled about treatment plan, medications, possible side effects, patientverbalized understanding. All questions were answered to the best of my ability. This discharge took greater then 30 minutes in planning, reviewing documentation, counseling the patient, and discussing with other team members." ASSESSMENT ASSESSMENT Assessment 1. Abdominal pain with the nausea and vomiting suspect gastroenteritis 2. Sepsis has been ruled out 3. Lactic acidosis secondary to dehydration 4. Mild UTI 5. Status post tubal ligation recently 6. Bipolar disorder Date of Service: Aug 31, 2024 Billing Provider: MAGNO GARCIA MD Common Visit Codes: 49660-OLM/OBS DISCH DAY >30min MAGNO GARCIA MD Aug 31, 2024 18:05
== END 2024-08-31 18:50 | disposition home or self-care (01) | DRG 249 ==
LOC: ER 12:22 → OVERFLOW 17:10 → WEST WING 21:17
PROVIDERS: ADMIT Nurse Practitioner Family; ATTEND Nurse Practitioner Family
DX: A09 Infectious gastroenteritis and colitis, unspecified (principal); E87.20 Acidosis, unspecified; E86.0 Dehydration; F31.81 Bipolar II disorder; N39.0 Urinary tract infection, site not specified; Z91.041 Radiographic dye allergy status; Z79.899 Other long term (current) drug therapy; Z87.891 Personal history of nicotine dependence; Z90.49 Acquired absence of other specified parts of digestive tract; Z98.51 Tubal ligation status
CPT/HCPCS: 36415; 74176; 76856; 80048; 80053; 80202; 81001; 81025; 83605; 85025; 87040; 87081; 96365; 96375; 99291; G0378; J2405